=== PATIENT | male | born 1995 | race Caucasian/White ===

== ENCOUNTER 2017-06-27 18:11 | Emergency (ER) | payer SELFPAY ==
[~2017-06-27] VITALS: Ht 182.9 cm; Wt 57.8 kg
[2017-06-27 18:28] VITALS: BP 122/78
[2017-06-27] MEDS ORDERED: HYDR-3965 PO (19:03)
[2017-06-27] MEDS ORDERED: PENI500T2 PO (19:03)
== END 2017-06-27 19:15 | disposition home or self-care (01) ==
LOC: ER 18:12
DX: K08.89 Other specified disorders of teeth and supporting structures (principal); F17.200 Nicotine dependence, unspecified, uncomplicated; F12.10 Cannabis abuse, uncomplicated; F15.10 Other stimulant abuse, uncomplicated; F11.10 Opioid abuse, uncomplicated; Z56.0 Unemployment, unspecified; Z98.890 Other specified postprocedural states; Z79.899 Other long term (current) drug therapy
CPT/HCPCS: 99283

== ENCOUNTER 2018-03-19 20:02 | Emergency (ER) | payer SELFPAY ==
[~2018-03-19] VITALS: Ht 182.9 cm; Wt 59.0 kg
[2018-03-19] MEDS ORDERED: SULF1TAB49 PO (22:35)
[2018-03-19] MEDS ORDERED: sulfamethoxazole/trimethoprim DS (800/160mg) tablet PO ONE (22:35)
[2018-03-19] MEDS ORDERED: CEPH-572 PO (22:35)
[2018-03-19 22:47] VITALS: BP 135/78
== END 2018-03-19 22:52 | disposition home or self-care (01) ==
LOC: ER 20:03
DX: L03.116 Cellulitis of left lower limb (principal); F19.10 Other psychoactive substance abuse, uncomplicated; F12.90 Cannabis use, unspecified, uncomplicated; F15.90 Other stimulant use, unspecified, uncomplicated; F11.90 Opioid use, unspecified, uncomplicated; Z98.890 Other specified postprocedural states; Z56.0 Unemployment, unspecified; Z79.2 Long term (current) use of antibiotics
CPT/HCPCS: 99283